=== PATIENT | female | born 1930 | race Caucasian/White ===

== ENCOUNTER 2016-08-14 08:01 | Inpatient (IN) | payer OTHER ==
[~2016-08-14] VITALS: Ht 157.5 cm; Wt 83.0 kg
[~2016-08-14 08:01] MED LIST: CLARITIN10 MG PO; IBUPROFEN400 MG PO; METFORMIN ER500 M1 PO; NEU100 PO; PRI20 PO; PULMICORT180 MCG/A2 IH
--- NOTE | 2016-08-14 09:10 | NUR ---
PT OFF THE FLOOR TO CT VIA ALFONSO
--- NOTE | 2016-08-14 09:20 | NUR ---
EKG IN PROGRESS.
--- NOTE | 2016-08-14 09:22 | NUR ---
PORTABLE XRAY AT BEDSIDE
[2016-08-14 09:32] LABS: BASOPHIL % 0.6 % (0-2); PLATELET COUNT 210 x10^3mcL (130-400)
[2016-08-14 09:35] LABS: CALCIUM 9.1 mg/dL (8.5-10.1); CARBON DIOXIDE 28.4 mmol/L (21-32); CHLORIDE SERUM 107 mmol/L (98-107); CREATININE SERUM 0.8 mg/dL (0.6-1.0); GLUCOSE SERUM 135 mg/dL (74-106); POTASSIUM SERUM 4.1 mmol/L (3.5-5.1); SODIUM SERUM 141 mmol/L (136-145)
[2016-08-14 09:39] LABS: ALKALINE PHOSPHATASE 162 U/L (46-116); ALT/SGPT 172 U/L (14-59); AST/SGOT 265 U/L (15-37); BILIRUBIN TOTAL 0.77 mg/dL (0.20-1.00); CHOLESTEROL 191 mg/dL (<200); HDL CHOLESTEROL 49 mg/dL (40-60); MAGNESIUM 2.2 mg/dL (1.8-2.4); TOTAL PROTEIN, SERUM 6.9 g/dL (6.4-8.2)
[2016-08-14 09:40] LABS: ALBUMIN 3.2 g/dL (3.4-5.0)
--- NOTE | 2016-08-14 09:49 | NUR ---
PT REPORTS SHE CAN NOT USE RESTROOM AT THIS TIME.
--- NOTE | 2016-08-14 09:55 | NUR ---
PT SON TO LOBBY AND GRANDDAUGHTER AT BEDSIDE.
--- NOTE | 2016-08-14 10:47 | NUR ---
PT AMBUALTED WITH WALKER AND FAMILY TO RESTROOM FOR URINE SAMPLE.
--- NOTE | 2016-08-14 11:02 | NUR ---
PT BACK IN BED AND CONNECTED TO CM. FAMILY AT BEDSIDE AND SIDE RAILS UP FOR SAFETY. CALL LIGHT IN REACH.
[2016-08-14 11:10] LABS: microscopic required? NO
[2016-08-14 11:38] LABS: UA SPECIFIC GRAVITY 1.015 (1.005-1.035); urine erythrocyte NEGATIVE (NEGATIVE)
--- NOTE | 2016-08-14 11:45 | NUR ---
PT SLEEPING AND SNORING IN BED IN POC, EASILY AROUSABLE. PT ON CM AND FAMILY AT BEDSIDE.
[2016-08-14 12:05] LABS: AMYLASE 64 U/L (25-115); LIPASE 196 IU/L (73-393)
[2016-08-14] MEDS ORDERED: NORCO1 TA2 PO (13:39)
[2016-08-14] MEDS ORDERED: TYLENOL WITH CO1 TA2 PO (13:50)
--- NOTE | 2016-08-14 13:51 | NUR ---
CALLED AND GAVE REPORT TO MIN; ALL QUESTIONS ADDRESSED AT THIS TIME. PT RESTING IN POC AND FAMILY AT BEDSIDE.
[2016-08-14 15:36] VITALS: BP 154/92
--- NOTE | 2016-08-14 15:54 | NUR ---
RECEIVED PATIENT FROM ED VIA GUERNEY, PATIENT IN NO ACUTE DISTRESS, C/O PAIN TO ABD AND WILL MEDICATE ORDERED, ORIENTED PATIENT TO ROOM AND SURROUNDINGS, BED IN LOW POSITION, BED RAILS UP X 2, CALL LIGHT WITHIN REACH, WILL ENDORSE CARE TO MIN RN
[2016-08-14 17:10] LABS: PHOSPHOROUS 4.2 mg/dL (2.5-4.9)
[2016-08-14 17:14] VITALS: BP 178/93
--- NOTE | 2016-08-14 17:15 | NUR ---
DR. VILLANUEVA IS AWARE OF BP 178/93 HR 74
[2016-08-14 17:19] LABS: FREE T4 1.28 ng/dL (0.76-1.46); FREE THYROXINE INDEX 3.3 ug/dL (1.4-4.5); T3 TOTAL 1.19 ng/mL; T4(THYROXINE) 9.8 ug/dL (4.7-13.3)
--- NOTE | 2016-08-14 17:41 | NUR ---
PT C/O OF TIGHTNESS OF CHEST AND HEAD ACHE THAT RADIATES TO NECK 02/08. WILL MEDICATE PER EMAR. NO SIGNS OF SOB OR ACUTE DISTRESS AT THIS TIME. DR. VILLANUEVA IN ROOM WITH PT. BED AT LOW AND CALL LIGHT WITHIN REACH.
--- NOTE | 2016-08-14 19:24 | NUR ---
PT RESTING IN BED TALKING TO SON. PT DENIES CHEST PAIN AT THIS TIME. ENDORSED ALL CARE TO SHELLIE CHA. BED AT LOW AND CALL LIGHT WITHIN REACH.
--- NOTE | 2016-08-14 19:37 | NUR ---
PT. AWAKE, ALERT, ORIENTED X4, DENIES HEADACHE OR DIZZINESS. BREATH SOUNDS CLEAR, DIMINISHED BLL. RESP. EVEN, UNLABORED. NO SOB NOTED. DENIES CHESTPAIN, NSR ON MONITOR. NO EDEMA NOTED TO EXTREMITIES. PEDAL PULSES STRONG RIYA. ABD. SOFT AND ROUND, OBESE. BOWEL SOUNDS ACTIVE. C/O MILD ABD. PAIN, DENIES NAUSEA AT THIS TIME. IVF NS AT 50CC/HR. SON AT BEDSIDE. CALL LIGHT WITHIN REACH.
[2016-08-14 19:50] VITALS: BP 135/84
[2016-08-14 21:09] VITALS: BP 135/84
[2016-08-15 05:43] VITALS: BP 142/79
[2016-08-15 06:50] LABS: BASOPHIL % 0.4 % (0-2); PLATELET COUNT 203 x10^3mcL (130-400); RED CELL DISTRIBUTION WIDTH 14.1 % (11.5-14.5)
[2016-08-15 07:12] LABS: ALKALINE PHOSPHATASE 144 U/L (46-116); ALT/SGPT 127 U/L (14-59); AST/SGOT 102 U/L (15-37); BILIRUBIN TOTAL 0.45 mg/dL (0.20-1.00); CALCIUM 8.9 mg/dL (8.5-10.1); CHLORIDE SERUM 108 mmol/L (98-107); CREATININE SERUM 0.6 mg/dL (0.6-1.0); GLUCOSE SERUM 91 mg/dL (74-106); POTASSIUM SERUM 3.7 mmol/L (3.5-5.1); SODIUM SERUM 141 mmol/L (136-145); TOTAL PROTEIN, SERUM 6.5 g/dL (6.4-8.2)
--- NOTE | 2016-08-15 07:20 | NUR ---
AAO X4.ENGLISH MOSTLY.C/O MILD ABD'L PAIN AT 2/10 PAIN SCALE.LUNGS CLEAR.ON SR ON THE MONITOR.IVF NS GOING AT 50 ML/HR INFUSING WELL.CALL LIGHT WITHIN REACH.INSTRUCTED TO CALL FOR ANY PAIN/DISCOMFORT.PT VERBALIZES UNDERSTANDING.WILL CONTINUE TO MONITOR PT.
--- NOTE | 2016-08-15 08:10 | NUR ---
AND MEDICINE TEAM AT BEDSIDE.DISCUSS TO PT THE PLAN OF CARE.GMAT INSTRUCTOR AT BEDSIDE.
[2016-08-15 08:41] VITALS: BP 144/72
[2016-08-15 09:03] VITALS: BP 144/22
[2016-08-15 13:40] VITALS: BP 142/70
--- NOTE | 2016-08-15 15:00 | NUR ---
PT COMFORTABLE NO COMPLAINTS.
[2016-08-15 17:40] VITALS: BP 127/70; BP 156/52
--- NOTE | 2016-08-15 18:28 | NUR ---
NO SIGNIFICANT CHANGE NOTED.WILL ENDORSE TO NEXT SHIFT.
--- NOTE | 2016-08-15 19:29 | NUR ---
SHIFT REASSESSMENT DONE.PATIENT ALERT AND ORIENTED,MAINLY FRENCH,NEEDS ANTICIPATED.ROOM AIR.BREATHING EASY.GEN WEAKNESS.USES CANE AT HOME.FALL PRECAUTION.NS AT 50 CC/ HOUR,R HAND,PATENT.ONE FAMILY MEMBER SITTING ON THE EMPTY BED,GIVEN A CHAIR SO SHE CAN SIT IN THERE.NOT IN BED,REMINDED THAT EMPTY BED IS CLEAN FOR THE NEXT NEW PATIENT.TELE 10 SR.NO CHEST PAIN.SKIN INTACT.CALL LIGHT IN REACH FOR ASSISTANCE.
--- NOTE | 2016-08-15 20:18 | NUR ---
GIVEN NORCO FOR PAIN ON SHOULDER.
--- NOTE | 2016-08-15 20:48 | NUR ---
ANOTHER FAMILY MMBER VISITED,DAUGHTER SUPPORTIVE OF CARE.
--- NOTE | 2016-08-15 20:58 | NUR ---
EXTENSION TUBING TO IV SITE APPLIED FOR EASIER HANDLING.
--- NOTE | 2016-08-15 21:30 | NUR ---
PATIENT FOUND BY BANQUET ATTENDANT WITH THE CATH TUBING BROKEN,NEW TYPE OF DC.CHARGE NURSE MADE AWARE AND SUPERVIOR,TOOK PICTURE OF IT.
[2016-08-15 21:48] VITALS: BP 122/62
[2016-08-16] VITALS (7 sets, daily range): BP systolic 137–170; BP diastolic 66–81
--- NOTE | 2016-08-16 03:12 | NUR ---
PATIENT DID WET THE BED WITH HER WATER PITCHER,WANTING TO DEINK,KEEP CLEAN AND DRY,NEW LINEN CHANGED.JUST HAD MSO4 SAYS SEVER ABD PAIN.
--- NOTE | 2016-08-16 05:25 | NUR ---
BLOOD SUGAR THIS AM 105,SAME LAST NIGHT.
--- NOTE | 2016-08-16 06:18 | NUR ---
CORREC BODY ALIGNMENT MAINTAINED.PATIENT SPEAKS AND UNDERTAND CZECH ONLY,NEED ANTICIPATED.WILL ENDORSE TO INCOMING SHIFT.
[2016-08-16 06:28] LABS: CALCIUM 8.8 mg/dL (8.5-10.1); CARBON DIOXIDE 29.6 mmol/L (21-32); CHLORIDE SERUM 107 mmol/L (98-107); CREATININE SERUM 0.7 mg/dL (0.6-1.0); GLUCOSE SERUM 112 mg/dL (74-106); MAGNESIUM 1.8 mg/dL (1.8-2.4); PHOSPHOROUS 3.9 mg/dL (2.5-4.9); POTASSIUM SERUM 3.7 mmol/L (3.5-5.1); SODIUM SERUM 143 mmol/L (136-145)
--- NOTE | 2016-08-16 07:20 | NUR ---
RECIEVED REPORT FROM DANYELL CHA AT BEDSIDE. PT IS AAOX4 ABLE TO COMMUNICATE AND VERBAL COMMANDS. S1S2 PRESENT. FOUND PT ON RA NO SIGNS OF SOB OR ACUTE DISTRESS. PT REPORT ABD PAIN 5/10 WILL MEDICATE PER EMAR. PT VOIDS WELL. HYERACTIVE BS ON RUQ ABD. BS ACTIVE X3 QUADRANTS. PT REPORT PAIN THAT STARTS AT LUQ ABD THAT RADIATES UNDER BREAST TO CHEST 5/10. PT HAS WOBBLY GAIT AND USES WALKER AT HOME. BEDSIDE COMMODE AT BEDSIDE. NS INFUSING AT 50ML/HR TO R HAND. IV SITE WNL. BED AT LOW AND CALL LIGHT WITHIN REACH.
--- NOTE | 2016-08-16 08:47 | NUR ---
TEMPT 1100.6 AND C/O ABD PAIN AND KNEE PAIN 12/09 WILL MEDICATE PER EMAR.
--- NOTE | 2016-08-16 08:59 | NUR ---
DR. LERNER IS AWRE OF PT'S TEMPT 100.6 WITH CHILLS AND BP 170/9. AWAITING FOR NEW ORDERS. OMARI CONTINUE TO MONITOR.
--- NOTE | 2016-08-16 14:00 | NUR ---
PT TRANSFER TO [facility] FOR KNEE VIA WHEELCHAIR.
--- NOTE | 2016-08-16 17:02 | NUR ---
PT IS WARM TO TOUCH TEMPT 100.4. WILL MEDICATE PER EMAR. WILL NNOTIFY DR. LERNER. NO SIGNS OF SOB OR DISTRESS AT THIS TIME. BED AT LOW AND CALL LIGHT WITHIN REACH.
--- NOTE | 2016-08-16 17:11 | NUR ---
PAGE[facility]ATE DR. LERNER TO NOTIFY TEMPT 100.4. PER [facility] TEXT IS SENT.
--- NOTE | 2016-08-16 18:59 | NUR ---
PT RESTING IN BED WITH SON AT BEDSIDE. PT TEMPT IS 98.3, DENIES SHIN AND ABD PAIN. PT REMAINS NPO THROUGHOUT SHIFT. PT IS AAOX4 ABLE TO FOLLOW VERBAL COMMANDS. ON RA NO SIGNS OF DISTRESS OR SOB. NS INFUSING AT 50ML/HR TO R HAND. IV SITE WNL. WILL ENDORSE ALL CARE TO ONCOMING RN. BED AT LOW AND CALL LIGHT WITHIN REACH.
--- NOTE | 2016-08-16 19:10 | NUR ---
PT'S IN BED AAOX3 ARABIC SPEAKING ONLY , LUNG SOUNDS CTA , ABD SOFT BS ACTIVE X4, PIV INTACT INFUSING WELL .
--- NOTE | 2016-08-17 | NUR ---
I HAVE REVIEWED THE DATA COLLECTION BY GURVINDER (NAME):ALEXSANDRA LANDEROS ENTERED ON (DATE/TIME):08/16/161909 I CONCUR WITH THE DATA AND ANY EXCEPTIONS OR COMMENTS ARE LISTED BELOW:
--- NOTE | 2016-08-17 02:56 | NUR ---
PT IN BED WITH EYES CLOSED, TELE NUMBER 10 SHOWS NSR , PIV INTACT INFUSING WELL .
--- NOTE | 2016-08-17 06:12 | NUR ---
NO CHANGES OF CONDITION NOTED ALL DUE MEDS GIVEN NO REACTION NOTED , PIV INTACT INFUSING WELL , TELE NSR .
[2016-08-17 06:18] VITALS: BP 141/76
[2016-08-17 06:39] LABS: CALCIUM 8.8 mg/dL (8.5-10.1); CHLORIDE SERUM 105 mmol/L (98-107); CREATININE SERUM 0.7 mg/dL (0.6-1.0); GLUCOSE SERUM 114 mg/dL (74-106); POTASSIUM SERUM 3.6 mmol/L (3.5-5.1); SODIUM SERUM 141 mmol/L (136-145)
[2016-08-17 06:45] LABS: ALBUMIN 2.9 g/dL (3.4-5.0)
[2016-08-17 06:56] LABS: BASOPHIL % 0.4 % (0-2); PLATELET COUNT 194 x10^3mcL (130-400); RED CELL DISTRIBUTION WIDTH 13.9 % (11.5-14.5)
--- NOTE | 2016-08-17 07:30 | NUR ---
PATIENT IS IN BED, APPEARS TO BE SLEEPING. AROUSED EASILY TO NAME. IVF INFUSING WELL, SITE PATENT. RESP EVEN AND UNLABORED, ON ROOM AIR, SAT 97%. I.S. AT BEDSIDE AND PATIENT REMINDED TO USE 10X/HR W/A. R.T. PROTOCOL IN PLACE. PATIENT IS ALBANIAN SPEAKING. TELE 10 NSR. ABD SOFT AND ROUND, BOWEL SOUNDS ACTIVE. VOIDNG WELL. ASSISTED TO THE BATHROOM PRN. GENERALIZED WEAKNESS NOTED. PATIENT'S GAIT IS SLOW AND STEADY. DENIES ANY PAIN AT THIS TIME. WILL CONTINUE TO MONTIOR.
--- NOTE | 2016-08-17 08:30 | NUR ---
DR RAMSEY AND MEDICAL TEAM INTO SEE PATIENT AND DISCUSS PLAN OF CARE.
--- NOTE | 2016-08-17 11:16 | NUR ---
PATIENT'S PLAN OF CARE WAS DISCUSSED AND REVIEWED WITH FRANCHISE MANAGER:ALESHA MONTES. I HAVE REVIEWED THE DATA COLLECTION BY FRANCHISE MANAGER (NAME):ALESHA MONTES. ENTERED ON (DATE/TIME):08/17/16. I CONCUR WITH THE DATA AND ANY EXCEPTIONS OR COMMENTS ARE LISTED BELOW:
[2016-08-17 12:42] VITALS: BP 141/75
--- NOTE | 2016-08-17 13:34 | NUR ---
PATIENT HAS BEEN OOB WITH P.T AND HAS AMBULATED TO THE BATHROOM. FAMILY MEMBERS AT BEDSIDE. PATIENT HAS TOLERATED FULL LIQUID DIET WELL. NO C/O N/V OR ABD PAIN.
--- NOTE | 2016-08-17 14:32 | NUR ---
P.T. 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 S:Pt WAS SEEN AWAKE & ALERT IN BED, SPEAKS PORTUGUESE, ABLE TO FOLLOW SIMPLE COMMANDS W/ TACTILE & GESTURE CUES, CYRACOM PHONE AVAILABLE, SON IN ROOM & SUPPORTIVE; ORIENTED x3, AGREEABLE & COOPERATIVE W/ P.T.; DEMO (L)KNEE PAIN (P.S.7/10)(AVILEZ LEAVITT PAIN SCALE), NO C/O DIZZINESS AT THIS TIME. O:BED MOBILITY: CG ASSIST IN SUPINE TO SIT TRANSFERS: MIN/CG ASSIST IN SIT TO STAND W/ FWW GAIT: CG ASSIST W/ FWW X 108 FT A:Pt DEMO GOOD RESPONSE TO P.T. SESSION; FALL RISK; MILD WADDLING GAIT, ANTALGIC GAIT, MILD GENU VARUM L>R; Pt EDUC ON SAFE GAIT, HEP, USE OF CALL LIGHT FOR NURSE ASSIST, BREATHING TECH, DEMO UNDERSTANDING, FAIR FOLLOW THRU; XH=375/65, HR=86, O2 SAT ROOM AIR=95%. P:CONT PT ONCE DAILY 5X/WK X 1 WK; POC & DX DISCUSSED W/ COMMERCIAL LITIGATION ATTORNEY; WILL BENEFIT W/ P.T. AFTER ACUTE STAY. EVAL30 GCODES:[id number] [facility] REACH SCORE:23 inches [id number] Pt WAS GIVEN THERA EXER UE/LE KIAN; REQ CG/SBA IN TOILETTING, ABLE TO URINATE, PERFORM PERINEAL CARE, PERFORM UPPER BODY HYGIENE; Pt EDUC ON HAND PLACEMENT FOR SAFE TRANSFERS; ASSISTED TO BED SAFELY; HOB ELEVATED, CALL KENT, PHONE, TABLE IN REACH; APPRECIATIVE; SON IN ROOM; RE APPLIED SCDs; INSTRUCTED ON INCENTIVE SPIROMETER; CONT PT EX8,TA15
--- NOTE | 2016-08-17 15:04 | NUR ---
PATIENT'S PLAN OF CARE WAS DISCUSSED AND REVIEWED WITH TURNING AND BEADING MACHINE OPERATOR:ALESHA MONTES. I HAVE REVIEWED THE DATA COLLECTION BY TURNING AND BEADING MACHINE OPERATOR (NAME):ALESHA MONTES. ENTERED ON (DATE/TIME):08/17/16. I CONCUR WITH THE DATA AND ANY EXCEPTIONS OR COMMENTS ARE LISTED BELOW:
[2016-08-17 16:25] VITALS: BP 141/75
[2016-08-17] MEDS ORDERED: CIPRO250 MG PO (16:33)
[2016-08-17] MEDS ORDERED: LAC PO (16:35)
[2016-08-17] MEDS ORDERED: FLAGYL500 MG PO (16:36)
[2016-08-17] MEDS ORDERED: ZES10 PO (16:37)
--- NOTE | 2016-08-17 17:49 | NUR ---
PATIENT SITTING UP ON THE SIDE OF THE BED EATING DINNER TRAY. FAMILY MEMBER AT BEDSIDE. PATIENT TO D/C HOME THIS EVENING WITH HOME HEALTH FOR P.T. NO ACUTE DISTRESS NOTED. DENIES ANY ABD PAIN OR DISCOMFORT. DR LERNER AWARE OF PATIENT'S C/O LOOSE STOOLS TODAY.
--- NOTE | 2016-08-17 18:31 | NUR ---
PATIENT READY FOR D/C HOME. HL DC'D. PRESCRIPTIONS AND FOLLOW UP INSTRUCTIONS GIVEN. DM EDUCATIION PROVIDED. PERSONAL BELONGINGS LIST SIGNED. CONDITON APPEARS STABLE.
== END 2016-08-17 18:32 | disposition home health service (06) | DRG 391 ==
LOC: ED 08:01 → DU 13:31 → MU 08-17 15:42
PROVIDERS: Emergency Medicine; Family Medicine; ADMIT Family Medicine
DX: K57.32 Diverticulitis of large intestine without perforation or abscess without bleeding (principal); N17.0 Acute kidney failure with tubular necrosis; E44.0 Moderate protein-calorie malnutrition; J98.11 Atelectasis; K52.9 Noninfective gastroenteritis and colitis, unspecified; E11.51 Type 2 diabetes mellitus with diabetic peripheral angiopathy without gangrene; E11.40 Type 2 diabetes mellitus with diabetic neuropathy, unspecified; J45.909 Unspecified asthma, uncomplicated; I10 Essential (primary) hypertension; E87.8 Other disorders of electrolyte and fluid balance, not elsewhere classified; E78.1 Pure hyperglyceridemia; D18.09 Hemangioma of other sites; M43.06 Spondylolysis, lumbar region; K21.9 Gastro-esophageal reflux disease without esophagitis; M19.012 Primary osteoarthritis, left shoulder; M19.011 Primary osteoarthritis, right shoulder; Z96.651 Presence of right artificial knee joint; Z68.33 Body mass index [BMI] 33.0-33.9, adult; Z79.84 Long term (current) use of oral hypoglycemic drugs
CPT/HCPCS: 82962; 83880; 84439; 97110-GP; 97530-GP; G0480; J0744; J2270; J3490; J7030; J7613; J8597; Q0092

== ENCOUNTER 2017-07-26 11:10 | Emergency (ER) | payer OTHER ==
[~2017-07-26] VITALS: Ht 157.5 cm; Wt 78.0 kg
[~2017-07-26 11:10] MED LIST changes: +CIPRO250 MG PO; +FLAGYL500 MG PO; +LAC PO; +NORCO1 TA2 PO; +TYLENOL WITH CO1 TA2 PO; +ZES10 PO
[2017-07-26 11:21] VITALS: Ht 157.5 cm; Wt 78.0 kg
[2017-07-26 12:05] LABS: BASOPHIL % 0.3 % (0-2); PLATELET COUNT 252 x10^3mcL (130-400); RED CELL DISTRIBUTION WIDTH 14.3 % (11.5-14.5)
[2017-07-26 12:11] LABS: CALCIUM 9.3 mg/dL (8.5-10.1); CARBON DIOXIDE 26.7 mmol/L (21-32); CHLORIDE SERUM 105 mmol/L (98-107); CREATININE SERUM 0.9 mg/dL (0.6-1.0); GLUCOSE SERUM 120 mg/dL (74-106); POTASSIUM SERUM 3.8 mmol/L (3.5-5.1); SODIUM SERUM 136 mmol/L (136-145)
[2017-07-26 12:17] LABS: ALBUMIN 3.3 g/dL (3.4-5.0); ALKALINE PHOSPHATASE 96 U/L (46-116); ALT/SGPT 29 U/L (14-59); AST/SGOT 17 U/L (15-37); BILIRUBIN TOTAL 0.3 mg/dL (0.20-1.00); CHOLESTEROL 174 mg/dL (<200); HDL CHOLESTEROL 62 mg/dL (40-60); MAGNESIUM 2.1 mg/dL (1.8-2.4); TOTAL PROTEIN, SERUM 7.2 g/dL (6.4-8.2)
[2017-07-26 14:44] LABS: microscopic required? NO
[2017-07-26 15:21] LABS: UA SPECIFIC GRAVITY <=1.005 (1.005-1.035); urine erythrocyte NEGATIVE (NEGATIVE)
[2017-07-26 15:38] VITALS: BP 134/90
== END 2017-07-26 15:38 | disposition home or self-care (01) ==
LOC: ED 11:10
PROVIDERS: Emergency Medicine
DX: R53.1 Weakness (principal); J06.9 Acute upper respiratory infection, unspecified; I10 Essential (primary) hypertension; E11.9 Type 2 diabetes mellitus without complications; J45.909 Unspecified asthma, uncomplicated; Z86.79 Personal history of other diseases of the circulatory system
CPT/HCPCS: 36415; 83880; J7613; Q0092; Q0162

== ENCOUNTER 2018-03-09 19:11 | Inpatient (IN) | payer OTHER ==
[~2018-03-09] VITALS: Ht 162.6 cm; Wt 84.4 kg
[2018-03-09] MEDS ORDERED: CYCLOBENZAPRINE5 MG PO (23:37)
[2018-03-09] MEDS ORDERED: MOT600 PO (23:38)
[2018-03-09] MEDS ORDERED: GABAPENTIN100 M2 PO (23:39)
[2018-03-09] MEDS ORDERED: VITAMIN D50000 I4 PO (23:39)
[2018-03-09] MEDS ORDERED: MASON NATURAL L20 MG PO (23:40)
[2018-03-09] MEDS ORDERED: COZ25 PO (23:40)
[2018-03-09] MEDS ORDERED: ALL DAY ALLERGY10 M2 PO (23:40)
[2018-03-09 23:48] LABS: BASOPHIL % 0.7 % (0-2); PLATELET COUNT 208 x10^3mcL (130-400); RED CELL DISTRIBUTION WIDTH 14.5 % (11.5-14.5)
[2018-03-10 00:03] LABS: CALCIUM 9.2 mg/dL (8.5-10.1); CARBON DIOXIDE 22.7 mmol/L (21-32); CHLORIDE SERUM 105 mmol/L (98-107); CREATININE SERUM 0.9 mg/dL (0.6-1.0); GLUCOSE SERUM 117 mg/dL (74-106); SODIUM SERUM 135 mmol/L (136-145)
[2018-03-10 00:14] LABS: MAGNESIUM 2.6 mg/dL (1.8-2.4); PHOSPHOROUS 3.3 mg/dL (2.5-4.9)
[2018-03-10 00:15] LABS: CHOLESTEROL/HDL RATIO 2.7
[2018-03-10 00:25] VITALS: BP 121/63
[2018-03-10 00:29] VITALS: Ht 162.6 cm; Wt 84.4 kg
[2018-03-10 01:10] LABS: T3 TOTAL 1.09 ng/mL
[2018-03-10 01:14] LABS: FREE T4 1.01 ng/dL (0.76-1.46); FREE THYROXINE INDEX 2.5 ug/dL (1.4-4.5); T4(THYROXINE) 7.8 ug/dL (4.7-13.3)
[2018-03-10 06:21] VITALS: BP 105/62
[2018-03-10 07:33] VITALS: BP 121/68
[2018-03-10 07:46] LABS: BASOPHIL % 0.6 % (0-2); PLATELET COUNT 203 x10^3mcL (130-400); RED CELL DISTRIBUTION WIDTH 14.4 % (11.5-14.5)
[2018-03-10 08:07] LABS: CALCIUM 8.6 mg/dL (8.5-10.1); CARBON DIOXIDE 22.3 mmol/L (21-32); CHLORIDE SERUM 105 mmol/L (98-107); CREATININE SERUM 0.7 mg/dL (0.6-1.0); GLUCOSE SERUM 100 mg/dL (74-106); MAGNESIUM 2.3 mg/dL (1.8-2.4); PHOSPHOROUS 3.4 mg/dL (2.5-4.9); POTASSIUM SERUM 4.1 mmol/L (3.5-5.1); SODIUM SERUM 136 mmol/L (136-145)
[2018-03-10 11:21] LABS: AMPHETAMINE QUAL UR NONE DETECTED (See below)
[2018-03-10 11:32] LABS: urine erythrocyte NEGATIVE (NEGATIVE)
[2018-03-10 11:43] LABS: microscopic required? YES
[2018-03-10 17:11] VITALS: BP 109/65
[2018-03-10 20:30] VITALS: BP 112/60
[2018-03-11 05:53] VITALS: BP 105/48
[2018-03-11 07:14] LABS: CALCIUM 8.4 mg/dL (8.5-10.1); CARBON DIOXIDE 22.8 mmol/L (21-32); CHLORIDE SERUM 106 mmol/L (98-107); CREATININE SERUM 0.9 mg/dL (0.6-1.0); GLUCOSE SERUM 96 mg/dL (74-106); MAGNESIUM 2.2 mg/dL (1.8-2.4); POTASSIUM SERUM 4.6 mmol/L (3.5-5.1); SODIUM SERUM 135 mmol/L (136-145)
[2018-03-11 07:43] LABS: BASOPHIL % 0.6 % (0-2); PLATELET COUNT 190 x10^3mcL (130-400); RED CELL DISTRIBUTION WIDTH 14.1 % (11.5-14.5)
[2018-03-11 09:30] VITALS: BP 110/56
[2018-03-11 17:24] VITALS: BP 114/63
[2018-03-11 21:39] VITALS: BP 138/59
[2018-03-12 05:55] VITALS: BP 129/74
[2018-03-12 09:22] VITALS: BP 125/66
[2018-03-12 12:09] VITALS: BP 125/66
== END 2018-03-12 18:53 | DRG 604 ==
LOC: ED 19:11 → MU 23:27
PROVIDERS: Emergency Medicine; Family Medicine
DX: S70.02XA Contusion of left hip, initial encounter (principal); N17.0 Acute kidney failure with tubular necrosis; E87.1 Hypo-osmolality and hyponatremia; E11.65 Type 2 diabetes mellitus with hyperglycemia; E83.41 Hypermagnesemia; E78.5 Hyperlipidemia, unspecified; I10 Essential (primary) hypertension; J45.909 Unspecified asthma, uncomplicated; W18.39XA Other fall on same level, initial encounter; Z91.81 History of falling; Y93.89 Activity, other specified; Y92.89 Other specified places as the place of occurrence of the external cause; Z68.32 Body mass index [BMI] 32.0-32.9, adult; Z79.84 Long term (current) use of oral hypoglycemic drugs
CPT/HCPCS: 82962; 83880; 84439; 97110-GP; 97116-GP; 97530-GP; J2270; J3010; J7030; Q0092

== ENCOUNTER 2018-11-14 15:39 | Emergency (ER) | payer OTHER ==
[~2018-11-14] VITALS: Ht 152.4 cm; Wt 90.7 kg
[~2018-11-14 15:39] MED LIST changes: +ALL DAY ALLERGY10 M2 PO; +COZ25 PO; +CYCLOBENZAPRINE5 MG PO; +GABAPENTIN100 M2 PO; +MASON NATURAL L20 MG PO; +MOT600 PO; +VITAMIN D50000 I4 PO
[2018-11-14 16:00] VITALS: Ht 152.4 cm; Wt 90.7 kg
[2018-11-14] MEDS ORDERED: NEU300 PO (17:19)
[2018-11-14] MEDS ORDERED: LOSARTAN POTASS50 M1 PO (17:20)
[2018-11-14] MEDS ORDERED: ASPIR 8181 MG PO (17:21)
[2018-11-14 18:32] LABS: BASOPHIL % 0.6 % (0-2); PLATELET COUNT 242 x10^3mcL (130-400); RED CELL DISTRIBUTION WIDTH 14.4 % (11.5-14.5)
[2018-11-14 18:47] LABS: microscopic required? NO
[2018-11-14 18:53] LABS: CALCIUM 9.2 mg/dL (8.5-10.1); CARBON DIOXIDE 23.2 mmol/L (21-32); CHLORIDE SERUM 100 mmol/L (98-107); CREATININE SERUM 1.2 mg/dL (0.6-1.0); GLUCOSE SERUM 106 mg/dL (74-106); POTASSIUM SERUM 4.4 mmol/L (3.5-5.1); SODIUM SERUM 133 mmol/L (136-145)
[2018-11-14 18:58] LABS: ALKALINE PHOSPHATASE 111 U/L (46-116); ALT/SGPT 15 U/L (14-59); AST/SGOT 11 U/L (15-37); BILIRUBIN TOTAL 0.26 mg/dL (0.20-1.00); CHOLESTEROL 174 mg/dL (<200); HDL CHOLESTEROL 63 mg/dL (40-60)
[2018-11-14 18:59] LABS: urine erythrocyte NEGATIVE (NEGATIVE)
[2018-11-14 19:21] LABS: ALBUMIN 3.2 g/dL (3.4-5.0)
[2018-11-14 21:45] VITALS: BP 118/58
== END 2018-11-14 21:45 | disposition home or self-care (01) ==
LOC: ED 15:39
PROVIDERS: Emergency Medicine
DX: E86.0 Dehydration (principal); M75.31 Calcific tendinitis of right shoulder; R53.1 Weakness; J45.909 Unspecified asthma, uncomplicated; I10 Essential (primary) hypertension; E11.9 Type 2 diabetes mellitus without complications
CPT/HCPCS: J1885; J7030

== ENCOUNTER 2019-02-01 15:44 | Inpatient (IN) | payer OTHER ==
[~2019-02-01] VITALS: Ht 154.9 cm; Wt 80.3 kg
[~2019-02-01 15:44] MED LIST changes: +ASPIR 8181 MG PO; +LOSARTAN POTASS50 M1 PO; +NEU300 PO
[2019-02-01 15:50] VITALS: Ht 154.9 cm; Wt 80.3 kg
--- NOTE | 2019-02-01 15:55 | NUR ---
EKG IN PROGRESS IN TRIAGE.
--- NOTE | 2019-02-01 15:58 | NUR ---
TO ROOM 4 FOR EVAL.
[2019-02-01 17:15] LABS: BASOPHIL % 0.8 % (0-2); PLATELET COUNT 271 x10^3mcL (130-400)
[2019-02-01 17:18] LABS: CHLORIDE SERUM 100 mmol/L (98-107); POTASSIUM SERUM 5.1 mmol/L (3.5-5.1); SODIUM SERUM 135 mmol/L (136-145)
[2019-02-01 17:22] LABS: RED CELL DISTRIBUTION WIDTH 14.6 % (11.5-14.5)
[2019-02-01 17:42] LABS: ALKALINE PHOSPHATASE 122 U/L (46-116); ALT/SGPT 17 U/L (14-59); AST/SGOT 17 U/L (15-37); BILIRUBIN TOTAL 0.3 mg/dL (0.20-1.00); CALCIUM 9.6 mg/dL (8.5-10.1); CARBON DIOXIDE 29.2 mmol/L (21-32); CREATININE SERUM 1.1 mg/dL (0.6-1.0); GLUCOSE SERUM 133 mg/dL (74-106); TOTAL PROTEIN, SERUM 7.3 g/dL (6.4-8.2)
[2019-02-01 17:43] LABS: ALBUMIN 3.3 g/dL (3.4-5.0)
--- NOTE | 2019-02-01 18:02 | NUR ---
PT AWARE OF NEED FOR URINE, REPORTS THAT SHE DOES NOT HAVE THE URGE TO URINATE.
[2019-02-01 18:50] LABS: microscopic required? NO
[2019-02-01 18:56] LABS: UA SPECIFIC GRAVITY 1.015 (1.005-1.035); urine erythrocyte NEGATIVE (NEGATIVE)
--- NOTE | 2019-02-01 19:27 | NUR ---
PT UNABLE TO RECALL NAMES OF MEDICATIONS THAT SHE TAKES AT HOME, HER DAUGHTER WILL BRING HER LIST TOMORROW.
[2019-02-01 20:46] LABS: AMPHETAMINE QUAL UR NONE DETECTED (See below)
--- NOTE | 2019-02-01 21:36 | NUR ---
REPORT CALLED TO ASH PIT WORKER LEWIS TO ASSUME CARE FOR PT.
--- NOTE | 2019-02-01 21:42 | NUR ---
PT ARRIVED VIA GUERNEY ACCOMPANIED BY NURSE AND GRAND DAUGHTER, PT TRANSFERED TO BED, AIRMATRESS IN PLACE, ADMISSION ASSESMENT PERFORMED AT THIS TIME, PT IS A/OX4 WITH NO COMPLAINTS OF SHIN OR DIZZINESS, PT IS MEDSURG, IV TO THE LEFT HAND 22 G FLUSHES WELL, PT REPORTS ABD CRAMPING AT THIS TIME, NO NAUSEA OR VOMITTING, PT ORIENTED TO CONTROLS OF THE ROOM, CALL LIGHT WITHIN REACH, BED IN THE LOWEST POSITION, SIDE RAILS UP WILL CONTINUE TO MONUITOR.
--- NOTE | 2019-02-01 21:44 | NUR ---
PT TRANSFERRED TO MED SURG FLOOR VIA GURNEY BY EMT MATHIEU. PT VERBALIZED UNDERSTANDING FOR NEED OF CONTINUATION OF CARE. PT IS AWAKE, ALERT, AAOX4, SPEAKING IN FULL, CLEAR SENTENCES. RESP E/U, NAD NOTED.
--- NOTE | 2019-02-01 21:46 | NUR ---
RECEIVED PT VIA GURNEY FROM E/D, ACCOMPANIED BY TRANSPORTER. PT A/A/O X 4, CALM, COOPERATIVE; C/O INTERMITTENT THROBBING H/A 5/10; WEARS GLASSES (NOT W/ PT). DENIES CHEST PAIN OR DISCOMFORT AT THIS TIME. SCD BY BEDSIDE. FAINT EXPIRATORY WHEEZING BILATERAL LUNGS, CHEST RISING EVENLY, R/A, 96%, NO ACUTE RESPIRATORY DISTRESS NOTED. ABD SOFT, ROUND, TENDERNESS UPON PALPATION TO QUAD 2 (CONSTANT SHARP PAIN 10/10, EXACERBATED BY TWISTING, RELIEVED BY PAIN MEDICATIONS AND REST), NORMOACTIVE BOWEL SOUNDS X 4 QUADS, LAST BM 02/01/19, FORMED. C/O BURNING URINATION WITH FOUL-SMELLING URINE. GENERALIZED WEAKNESS, AMB W/ WALKER @ HOME, C/O DIFFUSE MUSCLE TENDERNESS TO ALL EXTREMITIES. IV SITE LH 22G, CDI. ORIENTED PT TO ROOM, BED CONTROLS, CALL LIGHT SYSTEM. SIDE RAILS UP X 2, BED IN LOW POSITION. WILL ENDORSE TO SEMAJ SAUCEDO.
[2019-02-01 22:25] VITALS: BP 109/52
[2019-02-01 22:29] VITALS: BP 109/52
--- NOTE | 2019-02-01 23:09 | NUR ---
CALLED DR SALAZAR AND INFORMED HIM OF THE PT 10/10 ABD PAIN, HE SAID HE WOULD ORDER CT OF ABD AND THEN ORDER SOMETHING FOR PAIN
--- NOTE | 2019-02-01 23:13 | NUR ---
RECEIVED REPORT FROM LEWIS CHA. WILL RESUME CARE.
--- NOTE | 2019-02-01 23:21 | NUR ---
RECEIVED PT AAOX4. SPEECH CLEAR. PT ABLE TO FOLLOW COMMANDS AND MAKE NEEDS KNOW. BREATHING E/U. NO SOB. ON RA. LUNG SOUNDS HAVE FAINT EXPIRATORY WEEZING TO UPPER LOBES AND DIMINISHED TO BASES. BREATHING TREATMENT TO BE GIVEN FROM RT. S1S2 AUSCULTATED WITH NO MURMUS NOTED. PT STATES NO CHEST PAIN AT THIS TIME. ABDOMEN ROUND, NONTENDER. BS ACTIVE X 4. NO N/V. PT USES BEDSIDE COMMODE. MILD GENERALIZED WEAKNESS AND AMBULATORY WITH WALKER. SKIN INTACT. L HAND 22G INFUSING NS AT 50ML/HR. IV SITE WNL. PT CALM RESTING IN BED AT THIS TIME. BED IN LOW POSIITION. CALL LIGHT WITHIN REACH. WILL CONTINUE TO MONITOR.
--- NOTE | 2019-02-01 23:59 | NUR ---
PT GIVEN TYLENOL 650MG PO FOR 4/10 ABDOMINAL PAIN. WILL REASSESS FOR RELIEF.
--- NOTE | 2019-02-02 02:09 | NUR ---
PT CALM SLEEPING IN BED AT THIS TIME. NAD NOTED. BREATHING E/U.
[2019-02-02 05:29] VITALS: BP 147/87
[2019-02-02 06:45] LABS: BASOPHIL % 0.1 % (0-2); PLATELET COUNT 260 x10^3mcL (130-400); RED CELL DISTRIBUTION WIDTH 14.5 % (11.5-14.5)
[2019-02-02 07:00] LABS: CARBON DIOXIDE 25.7 mmol/L (21-32); CHLORIDE SERUM 104 mmol/L (98-107); CREATININE SERUM 0.8 mg/dL (0.6-1.0); GLUCOSE SERUM 197 mg/dL (74-106); MAGNESIUM 2.2 mg/dL (1.8-2.4); PHOSPHOROUS 3.3 mg/dL (2.5-4.9); SODIUM SERUM 135 mmol/L (136-145)
--- NOTE | 2019-02-02 07:55 | NUR ---
RECEIVED PATIENT FROM SEMAJ MEHTA. PATIENT IN BED, HAS BEEN TAKEN TO DOWN TO RADIOLOGY FOR CT ABD, AND RETURNED TO BED. NO COMPLAINTS AT THIS TIME. SPOKE WITH PATIENT ABOUT PLAN OF CARE TODAY AND WILL AWAIT FURTHER ORDERS PATIENT IS NEW ADMIT. WILL ALSO WAIT FOR RESIDENTS TO COME AND SPEAK WITH PATIENT. CALL LIGHT IN REACH AT THIS TIME.
[2019-02-02 08:43] VITALS: BP 155/93
--- NOTE | 2019-02-02 10:54 | NUR ---
DR DAVIS IN TO SPEAK WITH PATIENT, STATES THAT PATIENT IS LIKELY TO STAY AN EXTRA DAY. PATIENT UNDERSTANDS AND AGREES. FURTHER BREATHING TREATMENTS AND PO STEROIDS TO BE ORDERED. PT JEREMY ALREADY IN FOR PATIENT, SEEN AMBULATING W WALKER OUT TO MANCINI AND BACK TO BED. NO FURTHER COMPLAINTS AT THIS TIME.
--- NOTE | 2019-02-02 13:27 | NUR ---
PATIENT IN BED, NO COMPLAINTS. WILL CONTINUE TO MONITOR. EATING LUNCH TRAY WO DIFFICULTY. CALL LIGHT IN REACH.
[2019-02-02] MEDS ORDERED: MECLIZINE HYD12.5 MG PO (15:33)
[2019-02-02] MEDS ORDERED: NAPROXEN500 MG PO (15:34)
[2019-02-02] MEDS ORDERED: MECLIZINE HYDRO25 M1 PO (15:34)
[2019-02-02 16:54] VITALS: BP 130/69
--- NOTE | 2019-02-02 19:30 | NUR ---
REPORT GIVEN TO SEMAJ SIMPSON. PATIENT IN BED, HAS MILD COMPLAINTS OF SHIN. UPDATED SEMAJ SIMPSON TO PLAN OF CARE FOR TOMORROW AND POSSIBLE DISCHARGE. CALL LIGHT IN REACH.
--- NOTE | 2019-02-02 19:35 | NUR ---
RECEIVED PT AWAKE ALERT AND VERBALLY RESPONSIVE IN SWEDISH.DENIES CHESTPAIN AT THIS TIME.BP 153/59 MMHG,HR 83.BREATHING EASY AND NON-LABORED.TOLERATING ROOMAIR @ 97%.OFFERED URINALS REQUESTED AND REPORTS OF URINARY FREQUENCY AND DYSURIA.REPOSITIONED AT THIS TIME.WILL CONTINUE TO MONITOR.
[2019-02-02 19:40] VITALS: BP 123/59
--- NOTE | 2019-02-03 04:30 | NUR ---
PT SLEPT WELL.DENIES ABDOMINAL PAIN ALL NIGHT.BREATHING EASY AND NON-LABORED.OFFERED BEDPAN NEEDED.ALL NEEDS MET.WILL CONTINUE TO MONITOR.
[2019-02-03 05:39] VITALS: BP 129/71
--- NOTE | 2019-02-03 07:25 | NUR ---
RECEIVED PATIENT FROM SEMAJ SIMPSON. PATIENT SLEEPING AT THIS TIME, WILL CONTINUE TO MONITOR FOR SOB OR RESPIRATORY DISTRESS. WILL REVIEW PLAN FOR TODAY TO PATIENT ONCE AWAKE. CALL LIGHT IN REACH AT THIS TIME.
[2019-02-03 09:11] VITALS: BP 160/76
--- NOTE | 2019-02-03 10:02 | NUR ---
DR DAVIS IN TO SPEAK WITH PATIENT, STATES PATIENT WILL BE DISCHARGED TODAY. WILL AWAIT FOR FAMILY MEMBERS TO ARRIVE AND ARRANGE FOR STEEPING PRESS TENDER AND DISCHARGE TODAY. CALL LIGHT IN REACH, ECHOCARDIOGRAM IN ROOM AT THIS TIME.
[2019-02-03 13:18] LABS: CALCIUM 9.6 mg/dL (8.5-10.1); CARBON DIOXIDE 25.3 mmol/L (21-32); CHLORIDE SERUM 102 mmol/L (98-107); CREATININE SERUM 0.8 mg/dL (0.6-1.0); GLUCOSE SERUM 134 mg/dL (74-106); POTASSIUM SERUM 4.7 mmol/L (3.5-5.1); SODIUM SERUM 136 mmol/L (136-145)
[2019-02-03 13:52] LABS: BASOPHIL % 0.3 % (0-2); PLATELET COUNT 287 x10^3mcL (130-400)
[2019-02-03 14:01] LABS: RED CELL DISTRIBUTION WIDTH 14.7 % (11.5-14.5)
[2019-02-03 16:08] VITALS: BP 129/65
--- NOTE | 2019-02-03 16:55 | NUR ---
PATIENT GRANDDAUGHTER IN TO VISIT PATIENT. EXPLAINED TO HER PLAN OF CARE AND PLANNED TRANSFER TO SNF ON TUESDAY. PATIENT ALSO MADE AWARE VIA TRANSLATION, PATIENT DID NOT UNDERSTAND DURING DR CANAS ROUNDS. FAMILY UNDERSTANDS. CALL LIGHT IN REACH AT THIS TIME.
--- NOTE | 2019-02-03 18:47 | NUR ---
PATIENT IN BED AT THIS TIME. FAMILY AT BEDSIDE, STATES SHIN HAS IMPORVED FROM PRIOR PRN TYLENOL PO. WILL ENDORSE TO ONCOMING NURSE ABOUT PLAN FOR PATIENT. CALL LIGHT IN REACH.
--- NOTE | 2019-02-03 19:10 | NUR ---
RECEIVED REPORT FROM SEMAJ PALMER. PT WAS AAOX4 LAYING IN BED. PT IS OCCITAN SPEAKING ONLY. PT DENIES ANY HEADACHE OR DIZZINESS AT THIS TIME. PT IS MED-SURG, NO TELE. PT'S PULSES ARE PALPABLE. NO EDEMA PRESENT. PT'S BREATHING IS EVEN AND UNLABORED. DENIES S/S OF SOB OR RESPIRATORY DISTRESS AT THIS TIME. PT IS OBESE AND ABD IS ROUND AND SOFT. LBM-02/03/19, FORMED. PT IS INCONTINENT AND VOIDS USING BEDPAN. PT HAS GENERALIZED WEAKNESS. PT IS ABLE TO REPOSITION IN BED BY SELF. PT HAS PATENT IV ON LEFT HAND AND NO S/S OF REDNESS, SWELLING, OR PAIN AT THIS TIME. CALL LIGHT WITHIN REACH. BED IN LOWEST POSITION. WILL CONTINUE TO MONITOR.
[2019-02-03 20:59] VITALS: BP 109/59
--- NOTE | 2019-02-04 03:28 | NUR ---
PT IS LAYING IN BED SLEEPING, BUT AROUSABLE. BREATHING EVEN AND UNLABORED. NO S/S OF ACUTE DISTRESS OR SOB. BED IN LOWEST POSITION. CALL LIGHT WITHIN REACH. WILL CONTINUE TO MONITOR.
[2019-02-04 05:50] VITALS: BP 129/70
--- NOTE | 2019-02-04 06:11 | NUR ---
PT COMPLIED WITH NURSING CARE THROUGHOUT SHIFT. NO ACUTE EVENTS OVERNIGHT. PT SLEPT MOST OF THE NIGHT, BUT EASILY AROUSABLE. COMFORT AND SAFETY MEASURES MAINTAINED. ALL NEEDS AND CONCERNS ADDRESSED. IV SITE PATENT AND WNL. IV IS SALINE LOCKED. PT DENIES ANY S/S OF PAIN AT THIS TIME. WILL CONTINUE TO MONITOR. WILL ENDORSE CARE TO DAY SHIFT NURSE.
[2019-02-04 06:22] LABS: BASOPHIL % 0.4 % (0-2); PLATELET COUNT 262 x10^3mcL (130-400); RED CELL DISTRIBUTION WIDTH 14.5 % (11.5-14.5)
[2019-02-04 06:41] LABS: CALCIUM 9.1 mg/dL (8.5-10.1); CARBON DIOXIDE 26.8 mmol/L (21-32); CHLORIDE SERUM 102 mmol/L (98-107); CREATININE SERUM 0.7 mg/dL (0.6-1.0); GLUCOSE SERUM 91 mg/dL (74-106); POTASSIUM SERUM 4.4 mmol/L (3.5-5.1); SODIUM SERUM 135 mmol/L (136-145)
--- NOTE | 2019-02-04 07:15 | NUR ---
ENDORSED CARE TO SEMAJ OSEGUERA. NO ACUTE DISTRESS NOTED AT THIS TIME.
--- NOTE | 2019-02-04 07:28 | NUR ---
RECEIVED CARE FROM BAKARI CHA. PATIENT HAD NO COMPLAINTS AT THIS TIME. CALL LIGHT PLACED WITHIN REACH, BED IN LOWEST POSITION. WILL CONTINUE TO MONITOR
[2019-02-04 09:45] VITALS: BP 116/38
--- NOTE | 2019-02-04 10:21 | NUR ---
ADMINISTERED MEDIATION PER MAR. FAMILY NOW AT BEDSIDE. DR. DAVIS AND TEAM ROUNDED ON PATIENT. UPDATED PATIENT AND FAMILY ON PLAN OF CARE. NEEDING SNF FOR REHAB AND STRENGTH, PENDING PLACEMENT WITH S/S TOMORROW. ADDRESS QUESTIONS AND CONCERNS FROM FAMILY
[2019-02-04 13:31] VITALS: BP 116/38
--- NOTE | 2019-02-04 14:17 | NUR ---
ADMINISTERED MEDICATION PER MAR. PATIENT ASKING ABOUT WHEN HER BREATHING TREATMENT WILL BE. RT ON FLOOR AT THIS TIME. WILL SEE PATIENT
--- NOTE | 2019-02-04 14:46 | NUR ---
Initial Nutrition Assessment Dx: Viral illness, acute bronchitis PMHx: Pre-DM, HTN, Asthma PSHx: B/L knee replacement Labs: (02/04) Na 135L, BUN 25H, A1c 6.5H, most POC glucose readings <180 mg/dL x 3 days Meds: Colace, D50%, Humulin, Levaquin, Neurontin, Prednisone, NSIV, Tylenol Diet: CCHO PO intake since admission: 90-100% x 3 meals Ht: 61" Wt: 177# (80.3 kg) BMI: 33.4 (Obesity Class I) Bed scale: 180# today IBW: 105# %IBW: 169% AJBW: 55.9 kg UBW: 170-175# Age: 88 y/o elderly female Food Allergies: NKFA Skin: Intact Leo: 18 Edema: None GI: Last BM: x 1 today Pt. admitted with difficulty breathing associated with decreased appetite x 3 days and alternating episodes of constipation and loose stools per H and P documentations. Continues with SOB today per provider progress notes. RD Note: Nursing trigger received for N/V/D and poor PO intake for > 3 days. Pt. endorses good appetite and no GI distress associated with CCHO diet. Notified pt. of therapeutic diet and the associated restrictions. See under education. Problem with: N/V/D/C: None Problems with: Chewing: None Swallowing: None Current appetite: Good to excellent Recent wt change: No recent weight change Vitamin/Supplement use: None Special diet at home: Regular/CCHO Physical activity: Ambulates with walker at baseline Nutrition education given (specify specific nutrition education and handout given): [facility] handouts were left at bedside for review. Reviewed CCHO counting for optimal BG management. Encouraged pt to ask any questions regarding therapeutic diet. Verbalized understanding. Estimated Nutritional Needs Based on adjusted body weight (55.9 kg) Energy: 4071-3099 kcal/day (25-30 kcal/kg for geriatric needs/wt maintenance) Protein: 56-67g/day (1.0-1.2 g/kg for geriatric needs) Fluid: 5456-5997 mL/day (30-32 mL/kg or per doctor's order) Nutrition Diagnosis: 1. Increased nutrient needs r/t altered metabolic demands AEB pt. with SOB and bronchitis. 2. Altered nutrition related lab values r/t endocrine dysfunction AEB elevated A1c and measured POC blood glucose readings x 3 days. Intervention 1. Continue CCHO diet as ordered and as tolerated. If PO intake meeting <75% by following assessment, consider Glucerna BID for supplementation. Monitor/Evaluate Goal: PO intake at least 75% of estimated needs Monitor: PO intake, Labs, GI function, skin, GI function F/U in 3-5 days as moderate risk (02/07-02/09)
--- NOTE | 2019-02-04 14:48 | NUR ---
Intervention 1. Continue CCHO diet as ordered and as tolerated. If PO intake meeting <75% by following assessment, consider Glucerna BID for supplementation.
--- NOTE | 2019-02-04 16:21 | NUR ---
PATIENT RESTING IN BED. FAMILY AT BEDSIDE. PATIENT BLOOD SUGAR RESULT WAS 206, ADMINISTERED 6U REGULAR INSULIN PER SLIDING SCALE VERIFIED BY ESTELA CHA. ADMINISTERED PO MEDICATION PER JUN. NO COMPLAINTS AT THIS TIME. CALL LIGHT WITHIN REACH
--- NOTE | 2019-02-04 19:12 | NUR ---
GAVE REPORT TO BAKARI CHA, ANSWERED QUESTIONS. ENDORSED CARE
--- NOTE | 2019-02-04 19:25 | NUR ---
PT RECEIVED A/O X4, PRIMARILY ARMENIAN SPEAKING, ABLE TO MAKE NEEDS KNOWN. MED-SURG, DENIES ANY CP/PRESSURE. PULSES PALPABLE, NO EDEMA PRESENT. BREATHING IS EVEN AND UNLABORED ON RA, DENIES SOB, NO RESP DISTRESS NOTED. ABD SOFT AND ROUND, DENIES N/V. VOIDS FREELY USING BEDPAN/BSC WITH ASSIST. GENERALIZED WEAKNESS. SKIN IS WARM AND DRY, INTACT. PT DENIES PAIN AT THIS TIME. IV TO LH, PATENT AND INTACT, SITE WNL. NO ACUTE DISTRESS NOTED. BED IN LOWEST SETTING, SIDE RAILS UP X2, CALL LIGHT WITHIN REACH. WILL CONT TO MONITOR.
[2019-02-04 20:17] VITALS: BP 100/49
--- NOTE | 2019-02-05 01:49 | NUR ---
PT RESTING IN BED WITH EYES CLOSED, BUT IS EASILY AROUSABLE. BREATHING IS EVEN AND UNLABORED. NO S/S OF PAIN OBSERVED. NO ACUTE DISTRESS NOTED. BED ALARM ON. CALL LIGHT WITHIN REACH. WILL CONT TO MONITOR.
[2019-02-05 05:33] VITALS: BP 152/74
[2019-02-05 06:55] LABS: BASOPHIL % 0.3 % (0-2); PLATELET COUNT 258 x10^3mcL (130-400)
[2019-02-05 07:06] LABS: RED CELL DISTRIBUTION WIDTH 14.7 % (11.5-14.5)
[2019-02-05 07:09] LABS: CARBON DIOXIDE 24.8 mmol/L (21-32); CHLORIDE SERUM 101 mmol/L (98-107); CREATININE SERUM 0.8 mg/dL (0.6-1.0); GLUCOSE SERUM 96 mg/dL (74-106); POTASSIUM SERUM 4.5 mmol/L (3.5-5.1); SODIUM SERUM 134 mmol/L (136-145)
--- NOTE | 2019-02-05 07:09 | NUR ---
RECEIVED REPORT FROM BAKARI CHA. PATIENT RESTING COMFORTABLY IN BED WITH ALL NEEDS MET. ALL QUESTIONS AND CONCERNS ADDRESSSED. ALL CARES ENDORSED.
--- NOTE | 2019-02-05 07:31 | NUR ---
PT SLEPT WELL THROUGHOUT THE EVENING. BREATHING IS EVEN AND UNLABORED, NO RESP DISTRESS NOTED. NO ACUTE CHANGES ENCOUNTERED DURING SHIFT. ALL NEEDS MET AND ANTICIPATED. CALL LIGHT WITHIN REACH. CONT OF CARE ENDORSED TO AM NURSE.
[2019-02-05 09:01] VITALS: BP 152/78
--- NOTE | 2019-02-05 11:50 | NUR ---
IN TO CHECK PATIENT BLOOD GLUCOSE. GLUSOCE IS 108. NO ACTION REQUIRED.
[2019-02-05] MEDS ORDERED: LEVOFLOXACIN500 M1 PO (12:19)
[2019-02-05] MEDS ORDERED: ECO81 PO (12:21)
[2019-02-05] MEDS ORDERED: HUMULIN R100 U/1 M1 SC (12:22)
[2019-02-05] MEDS ORDERED: PRE20 PO (12:23)
[2019-02-05] MEDS ORDERED: BUDESONIDE0.25 MG/2 IH (12:24)
[2019-02-05] MEDS ORDERED: MUCINEX600 MG PO (12:24)
[2019-02-05] MEDS ORDERED: ALBUD HHN (12:25)
--- NOTE | 2019-02-05 14:53 | NUR ---
PHYSICAL THERAPY DAILY NOTES CO-SIGN All documentation done by the Mohs Surgeon for 02/05/19 has been reviewed. I agree with the documentation. Reviewed/Co-Signed by: Estrella Figueroa PT Documentation Done by: ANGIE TAI PTA
[2019-02-05 16:58] VITALS: BP 98/46
[2019-02-05 17:39] VITALS: BP 98/46
--- NOTE | 2019-02-05 18:40 | NUR ---
PATIENT STABLE FOR TRANSFER PER MD. TRANSFER PAPERWORK DISCUSSED WITH PATIENT. PATIENT VERBALIZED UNDERSTANDING AND REQUESTS THAT DAUGHTER IS NOTIFIED. TELEPHONE NUER FOR CARE PATENER SO CHEMO WAS NOT IN SERVICE. DAUGHTER LAVELLE NOTIFIED OF PATIENT TRANSFER TO [facility] AND ADDRESS WAS GIVEN ALONG WITH TELEPHONE NUMBER. ALL QUESTIONS AND CONCERNS ADDRESSED.
--- NOTE | 2019-02-05 18:48 | NUR ---
REPORT CALLED TO [facility]. REPORT GIVEN TO CARLA AND ALL QUESTIONS AND CONCERNS WERE ADDRESSED. TRANSPORTATION TO ARRIVE @ 20:30 VIA [facility]. PT TO GO TO ROOM 112 BED 2.
--- NOTE | 2019-02-05 19:40 | NUR ---
REPORT GIVEN TO ANDI CHA. ENDORSED THAT PATIENT WILL BE TRANSFERRING TO [facility]. RECOVERY OPERATOR HELPER TIME OF 20:30 WITH PREMIER. PATIENT AND FAMILY AWARE. ALL FORMS SIGNED. PATIENT STILL NEEDS TO CHANGE AND HAVE ID BANDS AND IV REMOVED. ALL QUESTIONS AND CONCERNS ADDRESSED.
--- NOTE | 2019-02-05 19:54 | NUR ---
RECEIVED PT IN BED RESTING. NO SOB NOTED. C/O ABDOMINAL AND THROAT. WILL MEDICATE ORDERED.BED IN LOWEST POSITION,CALL LIGHT WITHIN REACH. WILL CONTINUE TO MONITOR.
[2019-02-05 21:19] VITALS: BP 108/60
--- NOTE | 2019-02-05 21:47 | NUR ---
BS 153. PT REFUSED INSULIN. WILL CONTINUE TO MONITOR.
--- NOTE | 2019-02-06 00:28 | NUR ---
PT ABOUT TO GO. D/C PACKET GIVEN. IV ACCESS AND ID BADGE REMOVED. PT AOX4. NO SOB NOTED. DENIES PAIN. PT TRANSPORTED VIA GUERNEY.
== END 2019-02-06 00:29 | DRG 190 ==
LOC: ED 15:44 → MU 19:09
PROVIDERS: Emergency Medicine; ADMIT Internal Medicine
DX: J44.1 Chronic obstructive pulmonary disease with (acute) exacerbation (principal); N17.0 Acute kidney failure with tubular necrosis; E44.1 Mild protein-calorie malnutrition; E87.1 Hypo-osmolality and hyponatremia; E86.0 Dehydration; E11.65 Type 2 diabetes mellitus with hyperglycemia; I10 Essential (primary) hypertension; Z96.651 Presence of right artificial knee joint; Z68.33 Body mass index [BMI] 33.0-33.9, adult; Z79.84 Long term (current) use of oral hypoglycemic drugs
CPT/HCPCS: 36600; 82962; 83880; 87804; 94150; 97116-GP; 97530-GP; G0378; J1956; J2930; J7030; J7512; J7613; J7620; J7633; J7644; Q0092

== ENCOUNTER 2019-04-03 09:21 | Inpatient (IN) | payer OTHER ==
[~2019-04-03] VITALS: Ht 154.9 cm; Wt 90.4 kg
[~2019-04-03 09:21] MED LIST changes: +ALBUD HHN; +BUDESONIDE0.25 MG/2 IH; +ECO81 PO; +HUMULIN R100 U/1 M1 SC; +LEVOFLOXACIN500 M1 PO; +MECLIZINE HYD12.5 MG PO; +MECLIZINE HYDRO25 M1 PO; +MUCINEX600 MG PO; +NAPROXEN500 MG PO; +PRE20 PO
--- NOTE | 2019-04-03 09:37 | NUR ---
CALLED PT. TO TRIAGE, NO ANSWER
[2019-04-03 09:38] VITALS: Ht 154.9 cm; Wt 90.4 kg
--- NOTE | 2019-04-03 10:13 | NUR ---
BREATHING TX IN PROGRESS
[2019-04-03 10:19] LABS: BASOPHIL % 0.2 % (0-2); PLATELET COUNT 150 x10^3mcL (130-400); RED CELL DISTRIBUTION WIDTH 14.5 % (11.5-14.5)
--- NOTE | 2019-04-03 10:26 | NUR ---
BREATHING TX COMPLETED.
[2019-04-03 10:32] LABS: CALCIUM 8.6 mg/dL (8.5-10.1); CARBON DIOXIDE 29.4 mmol/L (21-32); CHLORIDE SERUM 95 mmol/L (98-107); CREATININE SERUM 0.8 mg/dL (0.6-1.0); GLUCOSE SERUM 131 mg/dL (74-106); POTASSIUM SERUM 3.9 mmol/L (3.5-5.1); SODIUM SERUM 130 mmol/L (136-145)
[2019-04-03 10:38] LABS: ALKALINE PHOSPHATASE 83 U/L (46-116); ALT/SGPT 26 U/L (14-59); AST/SGOT 14 U/L (15-37); BILIRUBIN TOTAL 0.46 mg/dL (0.20-1.00); TOTAL PROTEIN, SERUM 6.7 g/dL (6.4-8.2)
--- NOTE | 2019-04-03 10:38 | NUR ---
PORTABLE CXR AT BEDSIDE
--- NOTE | 2019-04-03 10:45 | NUR ---
PT PRESENTED TO ED WITH SOB X2 DAYS. PER GRANDDAUGHTER, PT STARTED WHEEZING YESTERDAY AND WENT TO DOCTOR WHO TOLD HER COME IN IF SYMTPOMS WORSENED. PT HAS HISTORY OF ASTHMA AND DAUGHTER STATED THAT HER HOME INHALER WAS NOT HELPING HER SYMPTOMS. PT CURRENTLY HAS SOB WITH LABORED BREATHING AND EXPIRATORY WHEEZING IN BILATERAL UPPER LOBES UPON AUSCULTATION. PT STATES THAT LOWER BACK HURTS WHEN SHE BREATHS. AAOX4 BERMUDIAN SPEAKING. DAUGHTER AND GRANDAUGHTER AT BEDSIDE. PT GOWNED AND IN POSITION OF COMFORT ON FULL CM AND O2 VIA N/C AT 2L.
--- NOTE | 2019-04-03 11:15 | NUR ---
PT WITH URGE TO VOID. TAKEN TO BATHROOM VIA WHEELCHAIR WITH FAMILY. INSTRUCTED TO PROVIDE URINE SPECIMEN VIA CLEAN CATCH.
--- NOTE | 2019-04-03 11:25 | NUR ---
PT BACK TO BED WITH NO INCIDENT.
--- NOTE | 2019-04-03 11:37 | NUR ---
URINE COLLECTED WILL DIP
--- NOTE | 2019-04-03 12:38 | NUR ---
PT MEDICATED FOR BACK PAIN 02/08 REPORTED BY PT SEE EMAR. FAMILY AT BEDSIDE MADE AWARE. AWAITING POC AND FURTHER INFORMATION FROM DR RAMOS. WILL MONITOR
--- NOTE | 2019-04-03 13:10 | NUR ---
PT WITH URGE TO VOID, BED ÁLVAREZ APPLIED UNDER PTS BUTTOCKS
--- NOTE | 2019-04-03 13:10 | NUR ---
PT BACK TO POSITION OF COMFORT. VOIDED X 1 FAMILY AT BEDSIDE
--- NOTE | 2019-04-03 14:20 | NUR ---
PT WITH URGE TO HAVE BOWEL MOVEMENT PT TRANSPORTED TO BATHROOM VIA W/C WITH NO INCIDENT.
--- NOTE | 2019-04-03 14:45 | NUR ---
PT BACK TO ROOM. PLACED ON FULL CM FAMILY AT BEDSIDE WILL CONTINUE TO MONITOR
[2019-04-03 15:26] VITALS: BP 116/79
--- NOTE | 2019-04-03 15:30 | NUR ---
REPORT GIVEN TO [facility], BY STUDENT SEMAJ GAMBINO.
--- NOTE | 2019-04-03 15:38 | NUR ---
PT TO TELE FLOOR VIA GURNEY NO DISTRESS ON PORTABLE CM PT ACCOMPANIED BY FAMILY PRAVEEN RN AND ESTRELLITA EMT TRANSPORTED PT.
[2019-04-03 15:44] VITALS: BP 130/70
--- NOTE | 2019-04-03 15:53 | NUR ---
RECEIVED PT FROM ER, PT ADMIT FOR CHEST PAIN, PT IS A/O X3, FORGETFUL. LUNG SOUND WHEEZING RIYA, C/O SOB. USING ASSESSORY MUSCLE BREATHING. PT IS ON 2L/MINI O2 VIA NC. PO2 100%, PT IS ON TELE 36, NSR WITH PVC, PT C/O CHEST PAIN 8/10, BOWEL SOUND PRESENT ALL 4 QUADARNTS, NO DISTENTION, NO TENDER. PEDAL PULSE PRESENT BOTH FEET, NO EDEMA, IV AT LEFT AC, NO LEAKING, NO INFILTRATION. ALL ADLS ASSIST, ALL NEED MET, CALL LIGHT IN REACH, WILL CONTINUE TO MONITOR.
--- NOTE | 2019-04-03 16:51 | NUR ---
RECEIVED REPORT FROM VALERIE JIMENEZ RN, PT RESTING IN BED, IN NO ACUTE DISTRESS, EKG DONE AT BEDSIDE, NSR, RESP EVEN, MODERATE WHEEZING W/ RESPIRATORY, DIM BL, 2L/MIN, NC, 99%, AND ROUNF AND NON-TENDER TO TOUCH, BS CHECKED, NO INSULIN NEEDED PER SLIDING SCALE VIA EMAR, PT RESTING IN BED, IV PATENT AND INFUSING WELL, FAMILY AT BEDSIDE, VOID X 1, URINE COLLECTED FOR UA, MRSA NARE SAMPLE COLLECTED, ALL NEEDS ADDRESSED AT THIS TIME, CONTINUE TO MONITOR
[2019-04-03 17:04] LABS: microscopic required? NO
[2019-04-03 17:13] LABS: UA SPECIFIC GRAVITY <=1.005 (1.005-1.035); urine erythrocyte NEGATIVE (NEGATIVE)
--- NOTE | 2019-04-03 18:11 | NUR ---
PT RESTING IN BED, IN NO ACUTE DISTRESS, REPORTED BACK PAIN, 6/10, DULL, MEDICATED PT PER PRN ORDER VIA EMAR, TOLERATED WELL, FAMILY AT BEDSIDE, VOID X 1, IV PATENT AND INFUSING WELL, DRESSING CDI, RESP EVEN, 2L/MIN, NC, NO SOB/COUGH, ALL NEEDS ADDRESSED, SAFETY PROTOCOL FOLLOWED, WILL ENDORSE TO ONCOMING RN
--- NOTE | 2019-04-03 19:36 | NUR ---
REPORT GIVEN AT BEDSIDE TO SHELLIE CHA, PT RESTING IN BED IN NO ACUTE DISTRESS, CHARGE NURSE XIOMARA MADE AWARE
--- NOTE | 2019-04-03 19:57 | NUR ---
PT. AWAKE, ALERT, ORIENTED TO SELF AND PLACE. APPEARS SOMEWHAT FORGETFUL AT TIMES. SPEECH CLEAR. CONVERSATION APPROPRIATE AT THIS TIME. C/O MILD HEADACHE. RECEIVED PRN NORCO FROM DAY NURSE AT 1800. DENIES DIZZINESS. BREATH SOUNDS W/ EXPIR WHEEZING TO BUL. RESP. EVEN, UNLABORED. NO SOB NOTED. NSR ON TELE W/ OCCASIONAL PVC'S NOTED, TELE 36. DENIES CHESTPAIN. ABD,. SOFT AND ROUND, OBESE. BOWEL SOUNDS ACTIVE. PEDAL PULSES MODERATE. IV SITE INTACT. BED LOW LAYING WITH ALARM ON.
[2019-04-03 21:38] VITALS: BP 109/66
--- NOTE | 2019-04-04 00:23 | NUR ---
PT. W/ EYES CLOSED. APPEARS TO BE SLEEPING AT THIS TIME. NO APPEARANT SIGNS OF DISTRESS. CALL LIGHT REMAINS WITHIN REACH.
--- NOTE | 2019-04-04 01:18 | NUR ---
PT. AWAKE, C/O HEACHCE PER PT. PAIN LEVEL 4-5/10. PRN TYLENOL GIVEN. WILL MONITOR.
[2019-04-04 06:00] VITALS: BP 122/79
--- NOTE | 2019-04-04 06:13 | NUR ---
PT. DOZING MOSTLY THIS AM. NO COMPLAINTS AT THIS TIME. IVF INFUSING WELL, SITE REMAINS INTACT. CALL LIGHT WITHIN REACH. WILL ENDORSE PT CARE TO INCOMING NURSE.
[2019-04-04 06:18] LABS: BASOPHIL % 0.2 % (0-2); PLATELET COUNT 152 x10^3mcL (130-400); RED CELL DISTRIBUTION WIDTH 14.2 % (11.5-14.5)
[2019-04-04 06:23] LABS: CALCIUM 8.6 mg/dL (8.5-10.1); CHLORIDE SERUM 95 mmol/L (98-107); GLUCOSE SERUM 199 mg/dL (74-106); SODIUM SERUM 130 mmol/L (136-145)
[2019-04-04 06:39] LABS: MAGNESIUM 2.2 mg/dL (1.8-2.4); PHOSPHOROUS 3.6 mg/dL (2.5-4.9)
--- NOTE | 2019-04-04 07:20 | NUR ---
RECEIVED PT FROM NIGHT NURSE. PT IS LAYING DOWN IN BED WITH HOB UP. PT LOOKS TO BE IN NO ACUTE DISTRESS AT THIS TIME AND DENIES ANY PAIN. RESPIRATIONS EVEN AND UNLABORED ON 2L NC. TELE MONITOR PRESENT. ASSISTED PT TO BED BAN AND PT VOIDED WELL, CLEAR YELLOW URINE. IV SITE PATENT WITH NO SIGNS OF ERYTHEMA OR SWELLING WITH IV FLUIDS INFUSING. CALL LIGHT WITHIN REACH. WILL CONTINUE TO MONITOR.
[2019-04-04 08:07] VITALS: BP 142/78
--- NOTE | 2019-04-04 09:30 | NUR ---
PT COMPLAINING OF PAIN TO THE UPPER ABD AND LOWER CHEST 8/10 RADIATING TO THE BACK. WILL MEDICATE ACCORDING TO EMAR.
[2019-04-04 11:43] VITALS: BP 134/76
--- NOTE | 2019-04-04 17:15 | NUR ---
PT COMPLAINING OF THROAT AND NOSE FEELING DRY. PT ON NASAL CANNULA, APPLIED HUMIDIFIER TO NASAL CANNULA TO ASSIST WITH DRYNESS OF THROAT AND NOSE. FAMILY MEMBERS AT BEDSIDE. WILL CONTINUE TO MONITOR.
--- NOTE | 2019-04-04 18:50 | NUR ---
PT IS LAYING DOWN IN BED WITH HOB UP. PT STATES THAT SHE IS FEELING SOB AND THAT IT IS DIFFICULT FOR HER TO BREATH. PT ON 2L NC, AND PT SATTING AT 90%. RAISED HOB UP AD INCREASED NC TO 3L. CALLED RT TO GIVE PT A RESPIRATORY TREATMENT. IV SITE PATENT WITH NO SIGNS OF ERYTHEMA OR SWELLING WITH IV FLUIDS INFUSING. FAMILY MEMBERS AT BEDSIDE. CALL LIGHT WITHIN REACH, BED IN LOWEST POSITION, WILL ENDORSE TO ONCOMING SHIFT.
--- NOTE | 2019-04-04 19:30 | NUR ---
CARE ASSUMED FROM COY CHA. PT RESTING COMFORATBLY IN BED. FAMILY AT BEDSIDE. NO ACUTE DISTRESS NOTED. EVEN AND LABORED RESPIRATIONS NOTED ON 3LNC. ON TELE# [address] 111. IV INTACT. BED IN LOWEST POSITION. SIDE RAILS UPX2. CALL LIGHT WITHIN REACH. WILL CONTINUE TO MONITOR.
[2019-04-04 20:49] VITALS: BP 118/72
--- NOTE | 2019-04-04 23:25 | NUR ---
IV ACCIDENTALLY REMOVED, CATHETER INTACT, PRESSURE APPLIED. BLEEDING STOPPED. NEW IV INSERTED TO RFA WITH GOOD BLOOD RETURN AND FLUSHING WELL. PT CLEANED UP, GOWN CHANGED. IV PATENT AND INTACT RUNNING FLUIDS PER EMAR. ON TELE# [address] 102. BREATHING TX ADMINISTERING AT THIS TIME, ON 3LNC. BED IN LOWEST POSITION. SIDE RAILS UPX2. CALL LIGHT WITHIN REACH. WILL CONTINUE TO MONITOR.
[2019-04-05] VITALS (8 sets, daily range): BP systolic 66–120; BP diastolic 42–77
--- NOTE | 2019-04-05 04:05 | NUR ---
0313- FOUND PT IS VERY RESTLESS AND TRIED TO GET OUT OF BED, NOTED WITH INCREASED OF CONFUSION, CHECK PT'S SPO2 WITH 76% ON NC 3L. 0314-ENGINEERING RECRUITER CALLED AND TEAM ARRIVED. DR WALSH AT BEDSIDE. BLOOD SUGAR:202 MG/DL. 0330-125MG SOUL-MEDROL IVP X 1 GIVEN. 0338-22G INSERTED TO RH. 0340-1GM MG-RIDER INFUSING PER DR WALSH'S ORDER. 0345-20MG ETOMIDATE AND 100 MG SUCCINYLCHOLINE IVP GIVEN PER DR KING'S ORDER PRIOR INTUBATION. 0353-7.5 ETT WITH RT LIP LINE 24CM, DR KING PERFOMRED THE INTUBATION. INTUBATION PLACEDMENT CONFIRMED BY DR KING BY AUSCULTATION. PT SPO2 INCREASED TO 90% WITH AMBU BAG. X-RAY ORDERED. 0400-PLACED PT ON VENT BY RT WITH AC MODE, TV-500ML, PEEP:5, FIO2:100%. 0401-16 FR OGT INSERTED. 0402-TRANSFERRED PT TO ICU.
--- NOTE | 2019-04-05 04:07 | NUR ---
TELE BOX RETURNED TO TELE STATION.
--- NOTE | 2019-04-05 04:10 | NUR ---
PT TRANSFERRED AT THIS TIME VIA GURNEY TO ICU BED 5, NO COMPLICATIONS. PT TRANSFERRED WITH FULL ASSIST. PT ATTACHED TO FULL MACHINERY ERECTOR AND CONTINUOUS PULSE OXIMETRY. PT BAGGED BY RT DURAN, ATTACHED TO VENT. VITAL SIGNS: HR 117, 92/67 (74), RR 14, O2 74%, TEMP 97.7 AX. VENT SETTINGS: VCV AC MODE, RATE 12, VT 500, PEEP 5, FIO2 100%. RECEIVED PT INTUBATED, NOT SEDATED. PT UNRESPONSIVE AT THIS TIME. GCS=3. 7.5 ETT INTACT/SECURED, 23 CM LL. PERRLA NOTED, SLUGGISH 4 MM BILAT. NO GAG REFLEX PRESENT. LUNGS SOUND CLEAR TO BUL AND DIMIN TO BLL. SYMMETRICAL CHEST EXPANSION NOTED. RH AND RFA IV'S INTACT/SECURED, NO S/S OF INFILTRATION NOTED. PULSES FAINT X4 EXTREMITIES. SKIN IS COOL AND DRY. NO EDEMA NOTED. CAP REFILL < 3 SECS. ABD IS SOFT, ROUND, NONTENDER TO PALPATION. BOWEL SOUNDS HYPOACTIVE X4 QUADRANTS. OGT INTACT/SECURED, AWAITING VERIFICATION OF PLACEMENT BY X-RAY. SKIN IS INTACT.
--- NOTE | 2019-04-05 04:10 | NUR ---
REPORT HANDOFF GIVEN TO SEMAJ HURLEY. ALL QUESTIONS AND CONCERNS ADDRESSED.
--- NOTE | 2019-04-05 04:10 | NUR ---
FAMILY NOTIFIED OF ICU TRANSFER.
--- NOTE | 2019-04-05 04:19 | NUR ---
PT NOTED IN OPTICAL GLASS SAWYER WITH O2 SATURATION 60%. PT HIPOLITO WITH HR IN THE 40'S. NO PULSES PALPABLE/ NO PULSES NOTED WITH DOPPLER. COMPRESSIONS STARTED AND PT BAGGED BY RT AT THIS TIME. SEE CODE BLUE SHEET FOR DETAIL.
--- NOTE | 2019-04-05 04:30 | NUR ---
IV INSERTED TO RFA 20 GAUGE AT THIS TIME. GOOD BLOOD RETURN NOTED, FLUSHED 10 ML OF NS WITH NO S/S OF INFILTRATION NOTED.
--- NOTE | 2019-04-05 04:45 | NUR ---
PT HIPOLITO, HR IN THE HIGH 40'S. NO PULSE PALPABLE. COMPRESSIONS STARTED AT THIS TIME AND PT BAGGED BY RT. CODE BLUE CALLED. SEE CODE BLUE SHEET FOR DETAIL.
--- NOTE | 2019-04-05 04:50 | NUR ---
DR. KING AT BEDSIDE FOR CENTRAL LINE PLACEMENT AT THIS TIME
--- NOTE | 2019-04-05 05:00 | NUR ---
RIGHT FEMORAL CENTRAL LINE PLACEMENT PLACED AT THIS TIME BY DR. KING AND DR. SIMMS. RECEIVED VERBAL OK TO USE FROM DR. KING. LEVOPHED CONNECTED AT THIS TIME INFUSING @ 2 MCG/MIN.
--- NOTE | 2019-04-05 05:18 | NUR ---
VERBAL ORDER GIVEN BY DR KING TO IVP 1 AMP BICARB, THEN INFUSE D5W WITH 3 AMP BICARB AT 150ML/HR. ORDER NOTED AND CARRIED OUT. ADMINISTERED AT THIS TIME.
--- NOTE | 2019-04-05 05:25 | NUR ---
DR. SIMMS AND MYSELF SPEAKING TO THE PT'S DAUGHTER IN REGARDS TO EVENTS LEADING UP TO PT'S INTUBATION/CODE, POC, POOR PROGNOSIS, AND CODE STATUS. PER PT'S DAUGHTER, PT TO REMAIN FULL CODE AT THIS TIME.
--- NOTE | 2019-04-05 05:28 | NUR ---
PT'S HR 42 ON THE TITLE CLERK TRENDING DOWN. NO PULSES PALPABLE. PT IN PEA. COMPRESSIONS AND BAGGING INITIATED AT THIS TIME. SEE CODE SHEET FOR DETAIL
--- NOTE | 2019-04-05 05:52 | NUR ---
DR. KING AT BEDSIDE FOR REINTUBATION AT THIS TIME. PT'S CURRENT O2 SATURATION 51%.
--- NOTE | 2019-04-05 05:58 | NUR ---
PT REINTUBATED AT THIS TIME WITH SUCCESS BY DR. KING. 7.0 ETT INTACT/SECURED, 24 CM @ LL. AWAITING VERIFICATION FOR PLACEMENT FROM X-RAY. PT'S CURRENT O2 SATURATION 96%.
--- NOTE | 2019-04-05 06:12 | NUR ---
PT'S RATE INCREASED TO 14 AND VT TO 550 TO VENT BY RENEE RT. PT'S CURRENT O2 SATURATION 99%. WILL CONT TO MONITOR
--- NOTE | 2019-04-05 06:16 | NUR ---
X-RAY TECH AT BEDSIDE FOR VERIFICATION OF ETT PLACEMENT
--- NOTE | 2019-04-05 06:34 | NUR ---
BLOOD SUGAR 498. REPEATED AND READ 502. PER KATIE LLANES TO GIVE 21 UNITS OF REGULAR INSULIN PER EMAR
--- NOTE | 2019-04-05 06:37 | NUR ---
PER DR. KING ETT NEEDS TO BE RETRACTED PER XRAY RESULTS. DR. SIMMS MADE AWARE TO VIEW CXR.
--- NOTE | 2019-04-05 06:47 | NUR ---
ETT RETRACTED AT THIS TIME BY RENEE SEXTON TO 22 CM @ LL. AWAITING VERIFICATION OF PLACEMENT BY XRAY RESULTS.
--- NOTE | 2019-04-05 06:51 | NUR ---
MECHANICAL MAINTENANCE TECHNICIAN AT BEDSIDE FOR LAB DRAW
--- NOTE | 2019-04-05 06:57 | NUR ---
HR 39 ON BUSINESS INTELLIGENCE ARCHITECT. NO PULSES PALPABLE. PT IN PEA. COMPRESSIONS AND BAGGING INITIATED AT THIS TIME. SEE CODE SHEET PER DETAIL.
--- NOTE | 2019-04-05 07:03 | NUR ---
DR. RUSSO SPEAKING TO THE PT'S DAUGHTER CIRILO AT THIS TIME IN REGARDS TO CODE, POOR PROGNOSIS, AND CODE STATUS. PER PT'S DAUGHTER, PT TO REMAIN FULL CODE AT THIS TIME UNTIL FAMILY ARRIVES AND WILL DISCUSS WITH FAMILY FURTHER PLAN OF CARE
--- NOTE | 2019-04-05 07:12 | NUR ---
EPINEPHRINE GTT INITIATED AT THIS TIME @ 2 MCG/MIN. LEVOPHED TITRATED TO 10 MCG/MIN.
--- NOTE | 2019-04-05 07:18 | NUR ---
REPORT GIVEN TO DESTINY CHA FOR CONTINUITY OF CARE. ALL QUESTIONS/CONCERNS ADDRESSED. ENDORSING ALL CARE
--- NOTE | 2019-04-05 07:26 | NUR ---
DR SALAZAR CALL AT THIS TIME, REGARDING PRESSOR MEDICATIONS FOR PATIENT, B/P LOW AND LEVOPHED MAXED AT THIS TIME. WILL AWAIT ORDER.
[2019-04-05 07:48] LABS: CALCIUM 9.1 mg/dL (8.5-10.1); CARBON DIOXIDE 15.8 mmol/L (21-32); CHLORIDE SERUM 92 mmol/L (98-107); CREATININE SERUM 2.2 mg/dL (0.6-1.0); MAGNESIUM 3.7 mg/dL (1.8-2.4); POTASSIUM SERUM 5.4 mmol/L (3.5-5.1); SODIUM SERUM 135 mmol/L (136-145)
--- NOTE | 2019-04-05 08:00 | NUR ---
NO CALL BACK FROM DR. SALAZAR AT THIS TIME. PER RT HE PAGED TOO, AND NO CALL. RESIDENT SALES OPERATIONS ASSISTANT PAGED AT THIS TIME.
--- NOTE | 2019-04-05 08:18 | NUR ---
RESIDENTS STILL NO CALL AT THIS TIME. DR LEIGHANN CATHERINE. PATIENT IS CRITICAL AT THIS TIME.
[2019-04-05 08:48] LABS: GLUCOSE SERUM 568 mg/dL (74-106); PHOSPHOROUS 12.1 mg/dL (2.5-4.9)
[2019-04-05 08:54] LABS: BASOPHIL % 0.3 % (0-2)
--- NOTE | 2019-04-05 08:55 | NUR ---
UPON ASSESSMENT, NOTED PATIENTS HEART RATE TO TURN INTO SINUS HIPOLITO, HR:50. ASSESSED PATIENTS PULSES. PULSES FAINT AT THIS TIME. DR. LAWTON AT BEDSIDE, LILIAN FRITZ STARTED AT THIS TIME. SEE LILIAN BLUE SHEET FOR DETAILS.
--- NOTE | 2019-04-05 09:00 | NUR ---
FAMILY BROUGHT INTO BEDSIDE DURING CODE BLUE. UPDATED BY DR. LAWTON. PER FAMILY, STOP CPR AT THIS TIME. CODE BLUE ENDED, 900, UNSUCCESSFUL, PATIENT . WILL NOTIFY COVERING PHYSICIANS.
[2019-04-05 09:07] LABS: PLATELET COUNT 102 x10^3mcL (130-400); RED CELL DISTRIBUTION WIDTH 15.2 % (11.5-14.5)
--- NOTE | 2019-04-05 09:15 | NUR ---
[facility] CALLED AT THIS TIME, AND STS THAT THEY WILL NOT ACCEPT THE PATIENT. REFERRAL NUMBER: [id number]
--- NOTE | 2019-04-05 09:16 | NUR ---
[facility] CALLED AT THIS TIME, SPOKE WITH ARNAUD. PER ARNAUD, SHE WILL NOTIFY AND THEY WILL CALL BACK WITH CASE NUMBER. WILL AWAIT CALL AT THIS TIME.
--- NOTE | 2019-04-05 11:27 | NUR ---
FRUIT FARMWORKER , DEPUTY TANNER CALLED BACK AT THIS TIME AND STATED THAT THE BODY CAN BE RELSEASED. FRUIT FARMWORKER .
== END 2019-04-05 14:38 | disposition expired | DRG 208 ==
LOC: ED 09:21 → DU 14:28 → IC 14:28 → DU 14:38 → IC 04-05 04:08
PROVIDERS: Emergency Medicine; ADMIT Internal Medicine
PROC: 5A1935Z Respiratory Ventilation, Less than 24 Consecutive Hours (ICD-10-PCS; principal; 2019-04-05)
PROC: 0BH17EZ Insertion of Endotracheal Airway into Trachea, Via Natural or Artificial Opening (ICD-10-PCS; 2019-04-05)
PROC: 5A12012 Performance of Cardiac Output, Single, Manual (ICD-10-PCS; 2019-04-05)
PROC: 06HM33Z Insertion of Infusion Device into Right Femoral Vein, Percutaneous Approach (ICD-10-PCS; 2019-04-05)
PROC: B54BZZA Ultrasonography of Right Lower Extremity Veins, Guidance (ICD-10-PCS; 2019-04-05)
DX: J45.901 Unspecified asthma with (acute) exacerbation (principal); N17.0 Acute kidney failure with tubular necrosis; J96.21 Acute and chronic respiratory failure with hypoxia; E44.1 Mild protein-calorie malnutrition; E87.1 Hypo-osmolality and hyponatremia; M94.0 Chondrocostal junction syndrome [Tietze]; E11.65 Type 2 diabetes mellitus with hyperglycemia; E87.8 Other disorders of electrolyte and fluid balance, not elsewhere classified; I10 Essential (primary) hypertension; E78.5 Hyperlipidemia, unspecified; E66.9 Obesity, unspecified; Z68.37 Body mass index [BMI] 37.0-37.9, adult; Z96.653 Presence of artificial knee joint, bilateral; Z79.4 Long term (current) use of insulin; Z79.82 Long term (current) use of aspirin
CPT/HCPCS: 31500; 36600; 82962; 83880; A4628; G0378; J0171; J1956; J2370; J2543; J2920; J2930; J3010; J3475; J3490; J7040; J7620; Q0092